=== PATIENT | male | born 1995 | race Caucasian/White ===

== ENCOUNTER 2020-02-20 07:52 | Emergency (ER) | payer SELFPAY ==
[~2020-02-20] VITALS: Ht 190.5 cm; Wt 99.8 kg
--- NOTE | 2020-02-20 08:05 | NUR ---
ambulatory to er bed 10 c/o testicular pain and dysuria since this morning. pt not concerned about std. denies noticing hematuria. gowned. awaiting md delacruz.
--- NOTE | 2020-02-20 08:09 | NUR ---
dr urbina at bedside for eval.
[2020-02-20 08:20] LABS: APPEARANCE,URINE Clear (CLEAR); BILIRUBIN,URINE Negative (NEGATIVE); BLOOD, URINE Trace-lysed Ery/uL (NEGATIVE); COLOR,URINE Yellow (YELLOW); KETONES,URINE Negative (NEGATIVE); LEUKOCYTE ESTERASE ,URINE Negative (NEGATIVE); NITRITE, URINE Negative (NEGATIVE); PROTEIN,URINE Negative (NEGATIVE); UGLUCOSE Negative (NEGATIVE); UROBILINOGEN,URINE 0.2 EU/dL (0.2)
[2020-02-20 08:21] LABS: BACTERIA,URINE Rare /HPF (None Seen); RBC,URINE 0-2 /HPF (0-2); WBC,URINE 0-2 /HPF (0-3)
[2020-02-20 08:22] LABS: SQUAMOUS EPITHELIAL CELL,UR Rare /HPF (None Seen)
--- NOTE | 2020-02-20 08:32 | NUR ---
u/s tech at bedside for scrotal ultrasound.
[2020-02-20] MEDS ORDERED: KETOROLAC TROMETHAMINE INJ 30 MG/ML VIAL IM ONE (09:30)
[2020-02-20] MEDS ORDERED: KETOROLAC TROMETHAMINE 15 MG/ML VIAL ONE (09:37)
[2020-02-20 09:47] VITALS: BP 142/80
--- NOTE | 2020-02-20 09:47 | NUR ---
Patient discharged to home in stable condition. Written and verbal after care instructions given. Patient verbalizes understanding of instruction.
== END 2020-02-20 09:48 | disposition home or self-care (01) ==
LOC: ER 07:52
DX: N50.812 Left testicular pain (principal)
CPT/HCPCS: 76870; 81001; 96372; 99284; J1885; 81000-TC